=== PATIENT | male | born 1985 | race African-American/Black ===

== ENCOUNTER 2023-01-29 17:02 | Emergency (ER) | payer OTHER ==
[~2023-01-29 17:02] MED LIST: Iopamidol-370 76% 500 ML MDV (1 ML CHARGE) ONE
[2023-01-29] MEDS ORDERED: CEFAZOLIN 2 GM VIAL ONE (17:11)
[2023-01-29] MEDS ORDERED: Boostrix 0.5 ML (Tdap) VIAL (>/=7 yrs of age) ONE (17:11)
[2023-01-29] MEDS ORDERED: Morphine 4 MG/ML VIAL ONE ×2 (17:12→17:40)
[2023-01-29] MEDS ORDERED: Ondansetron PF 4 MG/2 ML Vial ONE (17:12)
[2023-01-29 17:24] LABS: #Eosinphils 0.2 thou/uL (0.0-0.7); #Monocytes 0.8 thou/uL (0.11-0.59); #Neutrophils 4.2 thou/uL (1.40-6.50); %Basophils 0.5 % (0.0-1.0); %Eosinophils 1.9 % (0.0-10.0); %Lymphocytes 38.5 % (21.0-51.0); %Monocytes 9.6 % (0.0-10.0); %Neutrophils 49.4 % (42.0-75.0); Hemoglobin 14.2 g/dL (14.0-18.0); Mean Corpuscular HGB CONC 32.9 g/dL (32.0-36.0); Mean Corpuscular Hemoglobin 28.2 pg (27.0-31.0); Mean Corpuscular Volume 85.7 fl (78.0-98.0); Platelet Count 300 10x3/uL (130-400); RBC Distribution Width 12.7 % (11.5-14.5); Red Blood Cell (RBC) Count 5.04 mill/uL (4.70-6.10); White Blood Cell (WBC) Count 8.4 10x3/uL (4.8-10.8)
[2023-01-29 17:38] LABS: PTT 26.1 sec (22.9-36.1)
[2023-01-29 17:45] LABS: INR-International Normal Ratio 1.2; Prothrombin Time 15.7 sec (12.0-14.7)
[2023-01-29 17:55] LABS: ALT (SGPT) 36 U/L (8-55); AST (SGOT) 26 U/L (5-34); Albumin 4.8 g/dL (3.5-5.0); Alkaline Phosphatase 85 U/L (40-110); Anion Gap 18 mmol/L (10-20); BUN (Urea Nitrogen) 20 mg/dL (8.9-20.6); Bilirubin, Total 1.2 mg/dL (0.2-1.2); Calc. Creatinine Clearance 0 mL/min (70-130); Calcium 9.6 mg/dL (7.8-10.44); Carbon Dioxide 21 mmol/L (22-29); Chloride 104 mmol/L (98-107); Estimated GFR 62; Globulin 3.2 g/dL (2.4-3.5); Glucose 98 mg/dL (70-105); Potassium 3.6 mmol/L (3.5-5.1); Sodium 139 mmol/L (136-145)
[2023-01-29] MEDS ORDERED: Bacitracin 1 PK ONE (20:07)
== END 2023-01-29 20:30 | disposition home or self-care (01) ==
LOC: ERS 17:02
DX: S60.512A Abrasion of left hand, initial encounter (principal); T22.112A Burn of first degree of left forearm, initial encounter; V29.39XA Other motorcycle (driver) (passenger) injured in unspecified nontraffic accident, initial encounter; Z23 Encounter for immunization
CPT/HCPCS: 36415; 70450; 71045; 71260; 72125; 74177; 80053; 83605; 85025; 85610; 85730; 86850; 86900; 86901; 90715; 93005; 96361; 96365; 96375; G0390; J2270; J2405; Q9967